=== PATIENT | male | born 1955 | race Caucasian/White ===

== ENCOUNTER 2018-04-19 18:37 | Emergency (ER) | payer BC, SELFPAY ==
[2018-04-19] MEDS ORDERED: Adacel (T-DAP) 0.5 ML VIAL ONE (19:26)
[2018-04-19] MEDS ORDERED: Lidocaine 1% 20 ML MDV ONE (19:26)
--- NOTE | 2018-04-19 19:36 | CT ---
CT CERVICAL SPINE WITHOUT CONTRAST: 04/19/2018 HISTORY: Fall. Trauma. Pain. COMPARISON: None. TECHNIQUE: Serial axial CT imaging at 2 mm intervals, from the skull base through the lung apices, with coronal and sagittal reformatted imaging. FINDINGS: The craniocervical junction, the atlantoaxial interspace, and the cervicothoracic junction demonstrat e no acute findings. The occipital condyles, the dens, and the C1-2 articulation demonstrate no acute findings. There is prominent, bulky osteophyte formation involving the facet joints bilaterally throughout the cervical spine, most prominent at C2-3 and C3-4. There is disk space narrowing, degenerative endplat e change, and anterior osteophyte formation, as well as posterior osteophyte formation at C4-5, C5-6, and C6-7. There is no significant anterolisthesis or retrolisthesis. No prevertebral soft tissue s welling. Imaged lung apices are unremarkable. No displaced fracture or evidence of dislocation seen. IMPRESSION: Severe multilevel cervical spine degenerative change. Evaluation for underlying central canal and/or neural foraminal stenosis could be best performed via follow-up MRI. No acute fracture or dislocati on is evident. POS: YOVANNY
--- NOTE | 2018-04-19 19:38 | CT ---
CT HEAD WITHOUT CONTRAST: 04/19/2018 HISTORY: Fall. Trauma. Pain. COMPARISON: None. TECHNIQUE: Serial axial CT imaging at 4.8 mm intervals, from the vertex through the skull base, without contrast . FINDINGS: There is soft tissue swelling in the right supraorbital region. The visualized paranasal sinuses and mastoid air cells are well aerated. There is no displaced maikol rial fracture, intracranial hemorrhage, midline shift, or mass effect. IMPRESSION: No intracranial hemorrhage or displaced calvarial fracture. POS: YOVANNY
[2018-04-19] MEDS ORDERED: Bacitracin Zinc 1 Packet ONE ×2 (19:59)
== END 2018-04-19 20:25 | disposition home or self-care (01) ==
LOC: SCSER 18:37
DX: S01.81XA Laceration without foreign body of other part of head, initial encounter (principal); S60.511A Abrasion of right hand, initial encounter; E11.9 Type 2 diabetes mellitus without complications; I10 Essential (primary) hypertension; F17.220 Nicotine dependence, chewing tobacco, uncomplicated; W01.0XXA Fall on same level from slipping, tripping and stumbling without subsequent striking against object, initial encounter
CPT/HCPCS: 12013; 70450; 72125; 90471; 90715; J2001

== ENCOUNTER 2018-07-14 08:54 | Emergency (ER) | payer BC | END 2018-07-14 09:14 | disposition home or self-care (01) | LOC: SCSER 08:54 | DX: J02.0 Streptococcal pharyngitis (principal); E11.9 Type 2 diabetes mellitus without complications; I10 Essential (primary) hypertension; F17.220 Nicotine dependence, chewing tobacco, uncomplicated | CPT/HCPCS: 99283 ==